=== PATIENT | female | born 1930 | race Caucasian/White ===

== ENCOUNTER 2019-09-09 12:46 | Emergency (ER) | payer MEDICARE ==
[~2019-09-09] VITALS: Ht 160 cm; Wt 83.0 kg
[2019-09-09 12:54] VITALS: BP 175/76
--- NOTE | 2019-09-09 14:51 | NUR ---
VASCULAR AT BEDSIDE PER ORDERS NOW
== END 2019-09-09 16:21 | disposition home or self-care (01) ==
LOC: ER 12:47
DX: M79.661 Pain in right lower leg (principal); M85.851 Other specified disorders of bone density and structure, right thigh; M54.5 Low back pain
CPT/HCPCS: 73564; 93971; 99284